=== PATIENT | male | born 1970 | race African-American/Black ===

== ENCOUNTER 2018-08-25 18:19 | Observation (INO) ==
[2018-08-25] MEDS ORDERED: 0.9 % Sodium Chloride 1,000 ML IVC ONE (19:23)
--- NOTE | 2018-08-25 19:27 | Emergency Department Note ---
Disposition Clinical Impression: Viral illness Disposition: Admitted As Inpatient Condition: Undetermined Time of Disposition: 21:02 SOB HPI - General Chief Complaint: ED Shortness of Breath/Dyspnea Stated Complaint: n/v, body aches, ursula Time Seen by Provider: 08/25/18 18:52 Source: patient Mode of arrival: ambulatory Limitations: no limitations Nursing Notes Reviewed: Yes Vital Signs Reviewed: Yes - History of Present Illness 48 year old male with no medical history arrives to the ED complaining of cough, congestion, malaise, myalgias. Patient states that this has been going on for 7 days. Denies any other complaints other than some mild dyspnea. No chest pain, abdominal pain, dysuria. Decreased PO intake overall. Denies any other complaints. - Related Data Home Medications Medication Instructions Recorded Confirmed No Known Home Drugs 08/25/18 08/27/18 Allergies Allergy/AdvReac Type Severity Reaction Status Date / Time No Known Allergies Allergy Verified 08/27/18 09:04 All systems ED: reviewed and negative except as stated. Constitutional: Reports: chills, weakness. Denies: fever Eyes: Denies: vision change ENT ED: Reports: congestion. Denies: ear pain, throat pain, dysphagia Cardiovascular: Denies: chest pain, palpitations, dyspnea on exertion, orthopnea, edema, syncope Respiratory: Reports: cough, dyspnea, sputum production. Denies: wheezes, hemoptysis Gastrointestinal: Reports: diarrhea (x3 episodes). Denies: abdominal pain, nausea, vomiting, constipation, hematemesis, melena, hematochezia Genitourinary: Denies: urgency, dysuria Musculoskeletal: Denies: back pain Integumentary: Denies: rash Neurological: Denies: headache, weakness, confusion Past Medical History - Past Medical History Attestation: Yes The following information was validated with the patient. Source: patient, old records reviewed Medical history: Reports: no medical history Surgical history: Reports: no surgical history Psychiatric history: Reports: no psych history - Social History Smoking Status: Never smoker Smokeless Tobacco Status: No Alcohol use: Reports: none Drug use: Reports: none Physical Exam - General Limitations: no limitations General appearance: alert, in no apparent distress - Head Head exam: atraumatic, normocephalic, normal inspection - Eye Eye exam: Present: normal appearance, PERRL, EOMI - ENT ENT exam: normal exam, normal oropharynx, mucous membranes moist - Neck Neck exam: Present: normal inspection, full ROM, trachea midline. Absent: tenderness, meningismus - Chest Chest inspection: Present: normal inspection, symmetric chest wall rise - Respiratory Respiratory exam: Present: other (Coarse breath sounds) - Cardiovascular Cardiovascular exam: Present: normal rhythm, bradycardia - Abdominal Exam Abdominal exam: Present: soft, Non-Tender. Absent: tenderness, distention, guarding, rebound, rigidity - Extremities Exam Extremities exam: Present: normal inspection, full ROM, normal capillary refill. Absent: tenderness, pedal edema - Neurological Exam Neurological exam: Present: alert, oriented X3, CN II-XII intact - Skin Skin exam: Present: warm, dry, intact, normal color Course - Reevaluation(s) Reevaluation #1: Patient reevaluated and found to be bradycardic at 42. Bedside ultrasound shows no pericardial fluid. No significant initial finding. Patient treated symptomatically with fluids, acetaminophen, Toradol. Reevaluation #2: On reentering the room patient continues to be bradycardic in the low 40s. Patient states that he has symptomatic exertion. Patient feels short of breath to exertion as well as has significant myalgias with her in his legs with exertion or in his arms with using them. Overall nonspecific. A she has not been having fevers. Given the bradycardia with no known baseline I did recommend admission. Patient is active patient could have bradycardia at baseline however the symptomatic exertional shortness of breath as well as myalgias is concerning. CPK is normal. Workup was otherwise been unremarkable. Patient be admitted for further possible cardiology evaluation, possible echo, overnight telemetry and observation. - Consultations Consultation #1: Discussed with hospitalist. Patient accepted for admission. Vital Signs Temperature 98.5 F 08/25/18 18:50 Pulse Rate 53 08/25/18 18:50 Respiratory Rate 16 08/25/18 18:50 Blood Pressure 127/87 08/25/18 18:50 O2 Sat by Pulse Oximetry 97 08/25/18 18:50 Temperature 98.2 F 08/27/18 07:17 Pulse Rate 54 08/27/18 07:17 Respiratory Rate 16 08/27/18 07:17 Blood Pressure 117/70 08/27/18 07:17 O2 Sat by Pulse Oximetry 96 08/27/18 07:17 Oxygen Delivery Oxygen Delivery Room Air Shortness of Breath/Dyspnea - Medical Records Medical records reviewed: Yes I reviewed the patient's medical records. - Lab Data Lab results reviewed: Yes I reviewed the patient's lab results. Result diagrams: 08/27/18 05:30 08/25/18 20:19 Lab Results 08/25/18 08/25/18 08/25/18 Range/Units 20:19 20:19 20:19 WBC 5.1 (4.3-11.1) K/mcL RBC 5.50 (4.19-5.50) M/mcL Hgb 15.3 (12.9-16.9) g/dL Hct 47.8 (37.5-50.1) % MCV 86.9 (83.0-100.0) fL MCH 27.8 L (28.0-33.3) pg MCHC 32.0 (31.6-35.5) g/dL RDW 12.7 (11.5-14.5) % Plt Count 253 (140-400) K/mcL MPV 8.8 L (9.4-12.4) fL Immature Gran % 0.4 (0-4) % Seg Neutrophils % 29.1 % Lymphocytes % 59.3 % Monocytes % 6.7 % Eosinophils % 3.9 % Basophils % 0.6 % Neutrophils # 1.5 L (1.6-8.9) K/mcL Lymphocytes # 3.0 (0.6-4.6) K/mcL Monocytes # 0.3 (0.0-1.3) K/mcL Eosinophils # 0.2 (0.0-0.6) K/mcL Basophils # 0.0 (0.0-0.2) K/mcL Sodium 137 (136-145) mEq/L Potassium 4.3 (3.5-5.1) mEq/L Chloride 101 (98-107) mEq/L Carbon Dioxide 26 (23-29) mEq/L BUN 15 (6-20) mg/dL Creatinine 0.90 (0.70-1.30) mg/dL Est GFR ( Amer) > 60 (> 60) Est GFR (Non-Af Amer) > 60 (> 60) BUN/Creatinine Ratio 17 (6-26) Glucose 94 (70-105) mg/dL Calculated Osmolality 285 (280-300) Lactic Acid 1.1 (0.5-2.2) mmol/L Calcium 9.9 (8.6-10.3) mg/dL Total Bilirubin 0.4 (0.3-1.0) mg/dL Direct Bilirubin 0.2 (0.0-0.2) mg/dL Indirect Bilirubin 0.2 (0.0-1.2) mg/dL AST 22 (13-39) Units/L ALT 18 (7-52) Units/L Alkaline Phosphatase 52 (34-104) Units/L Creatine Kinase (30-223) Units/L Troponin I < 0.03 (< 0.04) ng/mL Serum Total Protein 8.3 (6.4-8.9) g/dL Albumin 4.6 (3.5-5.7) g/dL Globulin 3.7 H (2.4-3.5) g/dL Albumin/Globulin Ratio 1.2 (1.1-2.2) Urine Color (Yellow) Urine Clarity (Clear) Urine pH (5.0-8.0) pH Units Ur Specific [place] (1.010-1.025) Urine Protein (Neg-Trace) mg/dL Urine Glucose (UA) (Normal) mg/dL Urine Ketones (Negative) mg/dL Urine Blood (Negative) Urine Nitrite (Negative) Urine Bilirubin (Negative) Urine Urobilinogen (Normal) mg/dL Ur Leukocyte Esterase (Negative) Ur Culture Indicated? (NO) EBV Capsid Ag IgM Ab (Negative) Infectious [place] Assay (Negative) 08/25/18 08/25/18 08/25/18 Range/Units 20:19 20:19 20:19 WBC (4.3-11.1) K/mcL RBC (4.19-5.50) M/mcL Hgb (12.9-16.9) g/dL Hct (37.5-50.1) % MCV (83.0-100.0) fL MCH (28.0-33.3) pg MCHC (31.6-35.5) g/dL RDW (11.5-14.5) % Plt Count (140-400) K/mcL MPV (9.4-12.4) fL Immature Gran % (0-4) % Seg Neutrophils % % Lymphocytes % % Monocytes % % Eosinophils % % Basophils % % Neutrophils # (1.6-8.9) K/mcL Lymphocytes # (0.6-4.6) K/mcL Monocytes # (0.0-1.3) K/mcL Eosinophils # (0.0-0.6) K/mcL Basophils # (0.0-0.2) K/mcL Sodium (136-145) mEq/L Potassium (3.5-5.1) mEq/L Chloride (98-107) mEq/L Carbon Dioxide (23-29) mEq/L BUN (6-20) mg/dL Creatinine (0.70-1.30) mg/dL Est GFR ( Amer) (> 60) Est GFR (Non-Af Amer) (> 60) BUN/Creatinine Ratio (6-26) Glucose (70-105) mg/dL Calculated Osmolality (280-300) Lactic Acid (0.5-2.2) mmol/L Calcium (8.6-10.3) mg/dL Total Bilirubin (0.3-1.0) mg/dL Direct Bilirubin (0.0-0.2) mg/dL Indirect Bilirubin (0.0-1.2) mg/dL AST (13-39) Units/L ALT (7-52) Units/L Alkaline Phosphatase (34-104) Units/L Creatine Kinase 167 (30-223) Units/L Troponin I (< 0.04) ng/mL Serum Total Protein (6.4-8.9) g/dL Albumin (3.5-5.7) g/dL Globulin (2.4-3.5) g/dL Albumin/Globulin Ratio (1.1-2.2) Urine Color (Yellow) Urine Clarity (Clear) Urine pH (5.0-8.0) pH Units Ur Specific [place] (1.010-1.025) Urine Protein (Neg-Trace) mg/dL Urine Glucose (UA) (Normal) mg/dL Urine Ketones (Negative) mg/dL Urine Blood (Negative) Urine Nitrite (Negative) Urine Bilirubin (Negative) Urine Urobilinogen (Normal) mg/dL Ur Leukocyte Esterase (Negative) Ur Culture Indicated? (NO) EBV Capsid Ag IgM Ab Negative (Negative) Infectious [place] Assay Negative (Negative) 08/25/18 Range/Units 20:20 WBC (4.3-11.1) K/mcL RBC (4.19-5.50) M/mcL Hgb (12.9-16.9) g/dL Hct (37.5-50.1) % MCV (83.0-100.0) fL MCH (28.0-33.3) pg MCHC (31.6-35.5) g/dL RDW (11.5-14.5) % Plt Count (140-400) K/mcL MPV (9.4-12.4) fL Immature Gran % (0-4) % Seg Neutrophils % % Lymphocytes % % Monocytes % % Eosinophils % % Basophils % % Neutrophils # (1.6-8.9) K/mcL Lymphocytes # (0.6-4.6) K/mcL Monocytes # (0.0-1.3) K/mcL Eosinophils # (0.0-0.6) K/mcL Basophils # (0.0-0.2) K/mcL Sodium (136-145) mEq/L Potassium (3.5-5.1) mEq/L Chloride (98-107) mEq/L Carbon Dioxide (23-29) mEq/L BUN (6-20) mg/dL Creatinine (0.70-1.30) mg/dL Est GFR ( Amer) (> 60) Est GFR (Non-Af Amer) (> 60) BUN/Creatinine Ratio (6-26) Glucose (70-105) mg/dL Calculated Osmolality (280-300) Lactic Acid (0.5-2.2) mmol/L Calcium (8.6-10.3) mg/dL Total Bilirubin (0.3-1.0) mg/dL Direct Bilirubin (0.0-0.2) mg/dL Indirect Bilirubin (0.0-1.2) mg/dL AST (13-39) Units/L ALT (7-52) Units/L Alkaline Phosphatase (34-104) Units/L Creatine Kinase (30-223) Units/L Troponin I (< 0.04) ng/mL Serum Total Protein (6.4-8.9) g/dL Albumin (3.5-5.7) g/dL Globulin (2.4-3.5) g/dL Albumin/Globulin Ratio (1.1-2.2) Urine Color Yellow (Yellow) Urine Clarity Clear (Clear) Urine pH 6.0 (5.0-8.0) pH Units Ur Specific [place] 1.024 (1.010-1.025) Urine Protein Negative (Neg-Trace) mg/dL Urine Glucose (UA) Normal (Normal) mg/dL Urine Ketones Negative (Negative) mg/dL Urine Blood Negative (Negative) Urine Nitrite Negative (Negative) Urine Bilirubin Negative (Negative) Urine Urobilinogen Normal (Normal) mg/dL Ur Leukocyte Esterase Negative (Negative) Ur Culture Indicated? NO (NO) EBV Capsid Ag IgM Ab (Negative) Infectious [place] Assay (Negative) - Radiology Data Radiology results reviewed: Yes I reviewed the patient's radiology results. Chest X-Ray 08/25/18 19:23 IMPRESSION: No acute cardiopulmonary disease. D/ / Oscar Mendez MD / Oscar Mendez MD Interpreting Provider: Oscar Mendez MD - EKG Data EKG attestation: Yes I reviewed and interpreted this EKG. EKG results narrative: Heart rate 52 beats for minute. Normal sinus bradycardia. No ST elevation or ST depression noted. Shortened [place] interval. No ST elevation or ST depression. Attestation Statement - Attestation Attestation: Resident Attestation: I examined this patient and my medical decision making was reviewed with the Resident Physician. I agree with the documented findings, disposition and treatment plan as described except to the extent set forth below. We independently had [id number] contact with the patient.EKG reviewed with resident physician. Agree with documentation. Patient presenting for evaluation of generalized weakness, fatigue. Symptoms started approximately 1 week ago. Patient states he had a sore throat as well as lymph nodes in his neck. Patient states that he has had generalized body ach es which she describes as muscle soreness. Patient states that he went for a short walk and was significant only tired afterwards causing him to have to take a nap. Patient has not had similar symptoms to this in the past. Patient is otherwise healthy and is not on medications. Patient will require further blood work and investigation. Patient is bradycardic but regular rhythm, clear to auscultation bilaterally, abdomen soft with reported mild discomfort with no significant tenderness to pa lpation and no guarding or rebound. No significant swelling of the lower extremities. No associated rashes. Patient has normal range of motion of neck no signs of meningismus.
[2018-08-25 20:35] LABS: Basophils % 0.6 %; Eosinophils # 0.2 K/mcL (0.0-0.6); Eosinophils % 3.9 %; Hematocrit 47.8 % (37.5-50.1); Hemoglobin 15.3 g/dL (12.9-16.9); Immature Granulocytes % 0.4 % (0-4); Lymphocytes % 59.3 %; Mean Corpuscular Hemoglobin 27.8 pg (28.0-33.3); Mean Corpuscular Volume 86.9 fL (83.0-100.0); Mean Platelet Volume 8.8 fL (9.4-12.4); Monocytes # 0.3 K/mcL (0.0-1.3); Monocytes % 6.7 %; Neutrophils # 1.5 K/mcL (1.6-8.9); Platelet Count 253 K/mcL (140-400); Red Cell Distribution Width 12.7 % (11.5-14.5); Segmented Neutrophils % 29.1 %; White Blood Count 5.1 K/mcL (4.3-11.1)
[2018-08-25 20:40] LABS: Bilirubin,Urine Negative (Negative); Blood,Urine Negative (Negative); Clarity,Urine Clear (Clear); Color,Urine Yellow (Yellow); Glucose,Urine (UA) Normal (Normal); Ketones,Urine Negative (Negative); Leukocyte Esterase,Urine Negative (Negative); Nitrite,Urine Negative (Negative); Protein,Urine Negative (Neg-Trace); Specific Gravity,Urine 1.024 (1.010-1.025); Urobilinogen,Urine Normal (Normal)
[2018-08-25 20:56] LABS: Alanine Aminotransferase 18 Units/L (7-52); Albumin 4.6 g/dL (3.5-5.7); Albumin/Globulin Ratio 1.2 (1.1-2.2); Alkaline Phosphatase 52 Units/L (34-104); Aspartate Amino Transferase 22 Units/L (13-39); BUN/Creatinine Ratio 17 (6-26); Bilirubin,Direct 0.2 mg/dL (0.0-0.2); Bilirubin,Indirect 0.2 mg/dL (0.0-1.2); Bilirubin,Total 0.4 mg/dL (0.3-1.0); Blood Urea Nitrogen 15 mg/dL (6-20); Calcium 9.9 mg/dL (8.6-10.3); Carbon Dioxide 26 mEq/L (23-29); Chloride 101 mEq/L (98-107); Globulin 3.7 g/dL (2.4-3.5); Glucose 94 mg/dL (70-105); Osmolality,Calculated 285 (280-300); Potassium 4.3 mEq/L (3.5-5.1); Sodium 137 mEq/L (136-145); Total Protein 8.3 g/dL (6.4-8.9); Troponin I < 0.03 ng/mL (< 0.04); eGFR For African Americans > 60 (> 60); eGFR For Non-African Americans > 60 (> 60)
[2018-08-25] MEDS ORDERED: Ketorolac 15 MG/ML VIAL IVP ONE (21:07)
[2018-08-25] MEDS ORDERED: Acetaminophen 325 MG TABLET PO PRN (23:37)
[2018-08-25] MEDS ORDERED: traMADol 50 MG TABLET PO PRN (23:37)
[2018-08-25] MEDS ORDERED: Naloxone 0.4 MG/ML INJ IVP PRN (23:37)
[2018-08-25] MEDS ORDERED: Ringers Solution, Lactated 1,000 ML IVC SCH (23:45)
--- NOTE | 2018-08-26 00:10 | Internal Med History&Physical ---
Date of Encounter: 08/25/18 Time of Encounter: 23:59 Internal Medicine - H&P: HPI Chief complaint: malaise Admitted From: Home Plans for Post Hospital Care: Home History of present illness: Bill Jin is a 48-year-old man who denies any past medical history coming in to the emergency room with the complaint of several days of generalized malaise, weakness, anorexia and myalgias. He also complained of shallow breaths and dyspnea with exertion all of which have caused him to lay in bed all day. He denied associated fever, chills, chest and abdominal pain, dysuria, headache. In the ER he was given some fluids and APAP. He was found to be bradycardic which caused some concern (40s-50s). There was report that he was symptomatic from it which is what prompted admission for observation. On my asse ssment it appears this is not the case and his main complaint is generalized malaise and myalgias. Vitals: Reviewed General: We will developed -[place] male sitting up in bed in no acute distress. Skin: Warm and supple. HEENT: Moist mucous membranes. No conjunctivae pallor. Neck: No lymphadenopathy. No JVD. No carotid bruits. No palpable thyroid. Chest: Normal thoracic expansion. Normal breath sounds. Clear to auscultation. Heart: Normal S1 & S2; rhythmic. No rubs or murmurs. Abdomen: Non-distended, soft and non-tender to palpation. No peritoneal reaction. Extremities: No clubbing, cyanosis or edema. No calf tenderness. Normal distal pulses. No tenderness to palpation of his muscles. Neurological: Awake, alert and oriented to person, place and time. No focal deficits. Psych: Affect appropriate. Assessment/Plan 1. Malaise: Unclear etiology. No localizing signs or symptoms are present. Lab work is grossly unremarkable. May be a transient viral illness for which he can receive supportive care with nutrition, fluids and analgesics as needed. Will monitor for any new manifestations. 2. Bradycardia: Asymptomatic. Appears sinus. He dipped into the 40s in front of me and was seemingly fine. Review of old EKGs dating back to 2016 reveal that his heart rate is typically in the 50s. It may be physiologic and not a new finding. Will monitor on telemetry and have an echo in the morning for morp hologic evaluation. 3. DVT prophylaxis: Ordered. Past Med Surg Social Fam HX - Past Medical History Medical history: no medical history Psychiatric history: no psych history - Past Surgical History Surgical History: no surgical history - Social History Smoking Status: Never smoker Smokeless Tobacco Status: No Alcohol use: none Drug use: none Internal Medicine - H&P: Meds No Known Home Drugs 08/25/18 [History] Allergy/AdvReac Type Severity Reaction Status Date / Time No Known Allergies Allergy Verified 08/25/18 20:25 All Systems PM: A 10-system review of systems was performed and is negative for pertinent findings except as documented above in the HPI. Family history reviewed and found non-contributory. - Constitutional Vitals: Temp Pulse Resp BP Pulse Ox 98.5 F 45 20 138/83 96 08/25/18 20:31 08/25/18 21:00 08/25/18 21:00 08/25/18 21:00 08/25/18 21:00 Exam: . Internal Med - H&P Results - Labs CBC & Chem 7: 08/25/18 20:19 08/25/18 20:19 Labs: Short CBC 08/25/18 Range/Units 20:19 WBC 5.1 (4.3-11.1) K/mcL Hgb 15.3 (12.9-16.9) g/dL Hct 47.8 (37.5-50.1) % Plt Count 253 (140-400) K/mcL Neutrophils # 1.5 L (1.6-8.9) K/mcL BMP 08/25/18 20:19 Sodium 137 Potassium 4.3 Chloride 101 Carbon Dioxide 26 BUN 15 Creatinine 0.90 Glucose 94 Calcium 9.9 Cardiac Enzymes 08/25/18 Range/Units 20:19 Troponin I < 0.03 (< 0.04) ng/mL Liver Function 08/25/18 Range/Units 20:19 Total Bilirubin 0.4 (0.3-1.0) mg/dL Direct Bilirubin 0.2 (0.0-0.2) mg/dL AST 22 (13-39) Units/L ALT 18 (7-52) Units/L Alkaline Phosphatase 52 (34-104) Units/L Albumin 4.6 (3.5-5.7) g/dL Urine 08/25/18 Range/Units 20:20 Urine Color Yellow (Yellow) Urine Clarity Clear (Clear) Urine pH 6.0 (5.0-8.0) pH Units Ur Specific [place] 1.024 (1.010-1.025) Urine Protein Negative (Neg-Trace) mg/dL Urine Glucose (UA) Normal (Normal) mg/dL - Impressions ITS Impressions Chest X-Ray 08/25/18 19:23 IMPRESSION: No acute cardiopulmonary disease. D/ / Oscar Mendez MD / Oscar Mendez MD Interpreting Provider: Oscar Mendez MD - Time Spent With Patient Total time spent is greater than 50% in coordination of care (as documented) at patient's floor/unit and/or counseling patient: Greater than 35 minutes
--- NOTE | 2018-08-26 10:36 | Electrocardiograph Report ---
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
[2018-08-26 12:53] LABS: C-Reactive Protein < 5 mg/L (Less than 10)
[2018-08-26 13:13] LABS: Thyroid Stimulating Hormone 1.118 mcIU/mL (0.340-5.600)
--- NOTE | 2018-08-26 13:24 | Cardiology Consult Note ---
Date of Encounter: 08/26/18 Time of Encounter: 13:20 Assessment and Plan (1) Bradycardia Current Visit: Yes Status: Acute Patient noted to have bradycardia during stay. Symptoms appear to be from viral illness and cannot directly correlate fatigue to low HR at this time. H/o asymptomatic bradycardia seen on holter monitor in 2013-Avg HR 55 bpm with HR as low as 39 bpm. Telemetry review shows HR avg 49 bpm. Min HR 32 at 0530 am. Noted HR 39 at 0930. Occasional sinus arrhythmia. He denies dizziness or syncope. TSH normal. TTE shows EF 55%, no significant valvular disease. C/o occasional chest pain on going for several months. No significant cardiac risk factors. Standard stress test recommended to r/o chronotropic incompetence and ischemia. (2) Chest pain Current Visit: Yes Status: Acute Intermittent chest pain symptoms 2 times a week. No significant cardiac risk factor (AM male age 48). Troponin negative. EKG Sb with no acute St changes. Recommend standard stress test. Qualifiers: Chest pain type: unspecified Qualified Code(s): R07.9 - Chest pain, unspecified Discussion w patient/family: The assessment and plan as outlined above was discussed with the patient and/or family members who expressed understanding and agreement. All questions were answered. Thank you for involving us in the care of your patient. Please call with any questions. History of Present Illness Consult date: 08/26/18 Requesting physician: Kimberlee Jeong Consult reason: bradycardia Chief complaint: fatigue, and joint aches for one week. History of present illness: Mr. Jin is a 48 year old male with no significant past medical history who presents with c/o fatigue and joint aches for one week. C/o mils SOB and cough with sputum production. He was treated in the out-pt setting with antibiotics with no improvement in symptoms. He also describes intermittent left sided chest pain with exertion and at rest for the past few months. Past Med Surg Social Fam HX - Past Medical History Medical history: no medical history Psychiatric history: no psych history - Past Surgical History Surgical History: no surgical history - Social History Smoking Status: Never smoker Smokeless Tobacco Status: No Alcohol use: none Drug use: none - Family History Mother Living Status: Still Living Hx Family Cardiac Disorders: Yes (mom sister with ME at 28) Medications and Allergies No Known Home Drugs 08/25/18 [History] Allergy/AdvReac Type Severity Reaction Status Date / Time No Known Allergies Allergy Verified 08/25/18 20:25 All Systems Review: The remainder of the systems were reviewed and are negative Physical Examination Vital Signs, Last 4 Hours Temp Pulse Resp BP Pulse Ox 08/26/18 11:12 98.3 F 46 16 124/73 95 General: Conversant, No Apparent Distress HEENT: Atraumatic, Normocephaly, Mucus Membranes Moist Neck: No JVD, Normal carotid pulses Cardiac: Reg Rate and Rhythm, Normal S1 and S2, No Murmur Lungs: Normal Breath Sounds, No Wheeze, Rales, Rhonchi Neuro: Alert and responsive, No focal deficits noted Abdomen: Soft, Non-Tender Skin: No rashes noted on visualized skin Musculoskeletal: No Chest Wall Tenderness Extremities: No Clubbing, No Cyanosis, No Edema, Normal Pulses Results 08/25/18 20:19 08/25/18 20:19 Lab Results 08/25/18 08/25/18 08/26/18 20:19 20:19 12:14 WBC 5.1 Hgb 15.3 Hct 47.8 Plt Count 253 Sodium 137 Potassium 4.3 Chloride 101 Carbon Dioxide 26 BUN 15 Creatinine 0.90 Glucose 94 Calcium 9.9 Total Bilirubin 0.4 AST 22 ALT 18 Alkaline Phosphatase 52 Troponin I < 0.03 TSH 1.118 - Imaging and Cardiology Echo: report reviewed - EKG Interpretation EKG results cardiology: personally reviewed Consult Discharge Plan - Plan Referrals: NONE,PCP [Primary Care Provider] -
--- NOTE | 2018-08-26 14:31 | Internal Med Progress Note ---
Hospitalist Progress Note - Encounter Date of Encounter: 08/26/18 Time of Encounter: 14:25 - Subjective Interval History: Patient was seen and examined at bedside-currently complains of general malaise- upper extremity joints aching. He did have some bradycardia overnight with heart rate as low as 32 does not appear to be symptomatic discussed with ignacio owen-who will evaluate patient discussed treatment plan with the patient and who are at bedside verbalizes understanding - Exam Vitals: Temp Pulse Resp BP Pulse Ox 98.3 F 46 16 124/73 95 08/26/18 11:12 08/26/18 11:12 08/26/18 11:12 08/26/18 11:12 08/26/18 11:12 Exam: Skin: Free of rash and discoloration. Eyes: Sclera is white. There is no discharge from eyes. ENMT: Oral/pharyngeal mucosa is normal in appearance. There is no discharge from nose or ears. Respiratory: Normal breath sounds with no crackles and wheezes bilaterally. CV: Heart is regular with no gallop or murmur. GI: Abdomen is flat and soft with no palpable mass or visceromegaly. : There is no tenderness in patient's flanks bilaterally. Neuro exam: He has good strength in upper and lower extremities. He has normal eye movements. Psychiatric: He has normal affect. His thought process is appropriate to the situation. - Assessment and Plan (1) Malaise Current Visit: Yes Status: Acute Assessment and Plan: Patient states that he has been experiencing generalized malaise for approximately one week. Complains of fatigue and joint pain denies any fever nausea vomiting abdominal pain or diarrhea. States that he does not have an appetite and has lost a few pounds over the past week. He did see primary care provider did give him Levaquin for cough but no sputum production. Denies any He denies any recent travel or sick contacts. Denies any exposure to ticks but states he was bitten by an unidentified insect earlier this week while doing yard work -He does not have a white count or fever -We will check ESR CRP, as well as Lyme antigen -Influenza was negative we will check a respiratory panel -Urine was negative -TSH was negative -Consider consulting rheumatology (2) Bradycardia Current Visit: Yes Status: Acute Assessment and Plan: Patient did have bradycardia overnight with heart rate dipping down to 32-EKG with no ischemic changes review of records shows atypical heart rate in the 50s. I did have the patient ambulate during ambulation he was in the 70s and will return right back down to 49 at rest. Cardiac echo with EF of 55% with no significant valvular disease Discussed with cardiology who will see patient up on consult (3) Chest pain Current Visit: Yes Status: Acute Assessment and Plan: Patient has been experiencing intermittent chest pain he does not have any significant cardiac risk factors Troponins negative EKG with sinus bradycardia with no ST-T wave changes cardiology recommending stress test - Time Spent with Patient Total time spent is greater than 50% in coordination of care (as documented) at patient's floor/unit and/or counseling patient: Internal Medicine: Result - Labs CBC & Chem 7: 08/25/18 20:19 08/25/18 20:19 Labs: Short CBC 08/25/18 Range/Units 20:19 WBC 5.1 (4.3-11.1) K/mcL Hgb 15.3 (12.9-16.9) g/dL Hct 47.8 (37.5-50.1) % Plt Count 253 (140-400) K/mcL Neutrophils # 1.5 L (1.6-8.9) K/mcL BMP 08/25/18 20:19 Sodium 137 Potassium 4.3 Chloride 101 Carbon Dioxide 26 BUN 15 Creatinine 0.90 Glucose 94 Calcium 9.9 Cardiac Enzymes 08/25/18 Range/Units 20:19 Troponin I < 0.03 (< 0.04) ng/mL Liver Function 08/25/18 Range/Units 20:19 Total Bilirubin 0.4 (0.3-1.0) mg/dL Direct Bilirubin 0.2 (0.0-0.2) mg/dL AST 22 (13-39) Units/L ALT 18 (7-52) Units/L Alkaline Phosphatase 52 (34-104) Units/L Albumin 4.6 (3.5-5.7) g/dL Urine 08/25/18 Range/Units 20:20 Urine Color Yellow (Yellow) Urine Clarity Clear (Clear) Urine pH 6.0 (5.0-8.0) pH Units Ur Specific [place] 1.024 (1.010-1.025) Urine Protein Negative (Neg-Trace) mg/dL Urine Glucose (UA) Normal (Normal) mg/dL - Impressions Impressions Chest X-Ray 08/25/18 19:23 IMPRESSION: No acute cardiopulmonary disease. D/ / Oscar Mendez MD / Oscar Mendez MD Interpreting Provider: Oscar Mendez MD Echocardiogram 08/26/18 23:36 Impressions: LVEF 55%. Normal LV chamber size, wall thickness and function. Normal left ventricular diastolic function. Normal right ventricular structure and function. No evidence of pulmonary hypertension. No significant valvular dysfunction. Left Ventricular Wall Motion: Rest Echo Findings All wall segments showed normal motion. Findings: Study Quality * Technically adequate exam. ECG Findings * Sinus bradycardia. Left Ventricle * LVEF 55%. * Normal LV chamber size, wall thickness and function. * Normal left ventricular diastolic function. Right Ventricle * Normal right ventricular structure and function. Left Atrium * Mildly dilated left atrium. Right Atrium * Mildly dilated right atrium. Interatrial Septum * Interatrial septum not well evaluated. Aortic Valve * Trileaflet aortic valve with normal function. * No aortic regurgitation. * No aortic stenosis. Mitral Valve * Mildly thickened mitral valve leaflets. * No mitral regurgitation. * No mitral stenosis. Tricuspid Valve * Normal tricuspid valve structure and function. * Trace tricuspid regurgitation. * No evidence of pulmonary hypertension. Pulmonic Valve * Normal pulmonic valve structure and function. * Trace pulmonic regurgitation. Aorta * Normally sized aortic root. Pericardium * The pericardium appears normal. IVC * Normal IVC dimensions and inspiratory collapse. Pulmonary Artery * Normal visualized portions of the main pulmonary artery. Consult Discharge Plan - Plan Referrals: NONE,PCP [Primary Care Provider] - (3) Chest pain Qualifiers: Chest pain type: unspecified Qualified Code(s): R07.9 - Chest pain, unspecified
--- NOTE | 2018-08-26 16:56 | Electrocardiograph Report ---
[address] [address] Test Date: 2018-08-26 Pat Name: Bill Jin Department: 115 Room: 3A48 Gender: M [employer] Director: : 1970 Requested By: Kimberlee Jeong Order Number: [id number] Reading MD: Cate Garcia Measurements Intervals [place] Rate: 46 P: 46 [place]: 156 QRS: 14 QRSD: 100 T: 22 QT: 443 QTc: 401 Interpretive Statements SINUS BRADYCARDIA Electronically Signed On 08-26-2018 16:54:13 EDT by Cate Garcia
[2018-08-26 22:16] LABS: Amphetamine Screen,Urine Negative ng/mL (Cutoff=1000); Barbiturate Screen,Urine Negative ng/mL (Cutoff=200); Benzodiazepines Screen,Urine Negative ng/mL (Cutoff=200); Cannabinoid Screen,Urine Positive ng/mL (Cutoff = 50); Cocaine Screen,Urine Negative ng/mL (Cutoff= 300); Opiate Screen,Urine Negative ng/mL (Cutoff=300); Phencyclidine Screen,Urine Negative ng/mL (Cutoff=25)
[2018-08-27 05:47] LABS: Basophils % 0.2 %; Eosinophils # 0.3 K/mcL (0.0-0.6); Eosinophils % 5.4 %; Hematocrit 39.6 % (37.5-50.1); Immature Granulocytes % 0.2 % (0-4); Lymphocytes # 2.9 K/mcL (0.6-4.6); Lymphocytes % 54.5 %; Mean Corpuscular HGB Conc 32.6 g/dL (31.6-35.5); Mean Corpuscular Hemoglobin 27.3 pg (28.0-33.3); Mean Corpuscular Volume 83.7 fL (83.0-100.0); Mean Platelet Volume 8.5 fL (9.4-12.4); Monocytes # 0.4 K/mcL (0.0-1.3); Monocytes % 7.8 %; Neutrophils # 1.7 K/mcL (1.6-8.9); Platelet Count 238 K/mcL (140-400); Red Blood Count 4.73 M/mcL (4.19-5.50); Red Cell Distribution Width 12.5 % (11.5-14.5); Segmented Neutrophils % 31.9 %; White Blood Count 5.2 K/mcL (4.3-11.1)
[2018-08-27 05:54] LABS: Hemoglobin 12.9 g/dL (12.9-16.9)
--- NOTE | 2018-08-27 09:13 | Event Note ---
Date of Encounter: 08/27/18 Time of Encounter: 09:11 - Cardiology Event Note Standard stress test negative for ischemia. Appropriate HR response to stress. Excellent exercise capacity. No further inpatient cardiology recs needed. Cardiology will sign off. Will arrange outpatient follow up.
[2018-08-27 11:02] VITALS: BP 124/79
--- NOTE | 2018-08-27 11:41 | Discharge Summary ---
Orders not resulted at time of discharge: Pending orders 08/26/18 14:31 Respiratory Infection Panel [[facility]OLMIC] Routine Date of Encounter: 08/27/18 Time of Encounter: 11:00 - Discharge Diagnosis (1) Malaise Priority: Primary Status: Acute Assessment and Plan: 48-year-old man who denies any past medical history coming in to the emergency room with the complaint of several days of generalized malaise, weakness, anorexia and myalgias. He also complained of shallow breaths and dyspnea with exertion all of which have caused him to lay in bed all day. He denied associated fever, chills, chest and abdominal pain, dysuria, headache. In the ER he was given some fluids and APAP. He was found to be bradycardic which caused some concern (40s-50s). There was report that he was symptomatic from it which is what prompted admission for observation. On my assessment it appears this is not the case and his main complaint is generalized malaise and myalgias. He was assessed with malaise and bradycardia. Malaise possibly secondary to a viral infection. He improved with supportive management. He had a stress done for his intermittent bradycardia that came back WNL. He was discharged home in a stable condition. Influenza, lyme disease, EBV assays were negative (2) Bradycardia Priority: Primary Status: Acute (3) Chest pain Priority: Primary Status: Acute Qualifiers: Chest pain type: unspecified Qualified Code(s): R07.9 - Chest pain, unspecified Hospital course: Mr. Jin is a 48 year old male - Time Spent with Patient Total time spent providing and/or coordinating discharge services: - Discharge Medications Prescriptions: No Action No Known Home Drugs 1 each .ROUTE AD each Home Medications: No Known Home Drugs 08/25/18 [History] Allergies/Adverse Reactions: Allergy/AdvReac Type Severity Reaction Status Date / Time No Known Allergies Allergy Verified 08/27/18 09:04 Date of admission: 08/26/18 01:18 Primary care physician: PCP NONE Consults: 08/26/18 11:50 Consult to Cardiology [CONS] Routine Comment: Consulting Provider: Cardiology Tiana Reason for Consult: Bradycardia Time Notified: 11:55 Call Completed: Yes - Constitutional Vitals: Temp Pulse Resp BP Pulse Ox 98.2 F 52 16 124/79 98 08/27/18 10:58 08/27/18 10:58 08/27/18 10:58 08/27/18 10:58 08/27/18 10:58 Exam: Skin: Free of rash and discoloration. Eyes: Sclera is white. There is no discharge from eyes. ENMT: Oral/pharyngeal mucosa is normal in appearance. There is no discharge from nose or ears. Respiratory: Normal breath sounds with no crackles and wheezes bilaterally. CV: Heart is regular with no gallop or murmur. GI: Abdomen is flat and soft with no palpable mass or visceromegaly. : There is no tenderness in patient's flanks bilaterally. Neuro exam: He has good strength in upper and lower extremities. He has normal eye movements. Psychiatric: He has normal affect. His thought process is appropriate to the situation. - Patient Status Disposition: Home, Self-Care Condition: Undetermined - Discharge Instructions Follow Up With: Gregory Stern MD [Non-Partnered Physician] - (Web request. Office will call with date and time of appointment. Thank you) Forms: Work/School Release
--- NOTE | 2018-08-27 18:32 | Electrocardiograph Report ---
[address] [place], [place] [address] Test Date: 2018-08-26 Pat Name: Bill Jin Department: 115 Room: 3A48 Gender: M [employer] Manager: : 1970 Requested By: Mariama Rosario Order Number: [id number] Reading MD: Shay Pruitt Measurements Intervals [place] Rate: 50 P: 44 MS: 154 QRS: 18 QRSD: 101 T: 21 QT: 432 QTc: 407 Interpretive Statements SINUS BRADYCARDIA Electronically Signed On 08-27-2018 18:30:47 EDT by Shay Pruitt
--- NOTE | 2018-08-29 13:46 | Electrocardiograph Report ---
[address] [place], [place] [address] Test Date: 2018-08-26 Pat Name: Bill Jin Department: EXAM2 Room: 3A48 Gender: M Optimization Manager: : 1970 Requested By: Gee Casanova Order Number: [id number] Reading MD: Jesus Aguirre Measurements Intervals [place] Rate: 47 P: 29 PA: 155 QRS: 13 QRSD: 91 T: 49 QT: 453 QTc: 401 Interpretive Statements Sinus bradycardia Electronically Signed On 08-29-2018 13:44:40 EDT by Jesus Aguirre
== END 2018-08-27 13:04 | disposition home or self-care (01) ==
LOC: 3ANU 18:19 → EMEROOARM 18:19 → 3ANU 08-26 01:54
PROVIDERS: ADMIT Family Medicine; ATTEND Family Medicine